=== PATIENT | female | born 1995 | race Caucasian/White ===

== ENCOUNTER 2024-01-04 00:17 | Emergency (ER) | payer SELFPAY ==
[~2024-01-04] VITALS: Ht 167.6 cm; Wt 58.0 kg
[2024-01-04 00:31] VITALS: TEMP 97.9; O2SAT 100
[2024-01-04] MEDS: MAGNESIUM/ALUMINUM HYDROXIDE/SIMETHICONE 30ML UDC PO STA (00:39)
[2024-01-04] MEDS: ONDANSETRON HCL 4MG/2ML INJ IV STA (00:39)
[2024-01-04] MEDS: SODIUM CHLORIDE 0.9% 1,000 ML IV ONE (00:45)
[2024-01-04 01:15] LABS: HEMATOCRIT. 45.5 % (36.0-48.0); HEMOGLOBIN. 15.1 g/dL (12.0-16.0); MEAN CORPUSCULAR HEMOGLOBIN 29.6 pg (28.0-32.0); MEAN CORPUSCULAR HGB CONC 33.3 g/dL (31.0-37.0); MEAN PLATELET VOLUME 9.3 fl (7.4-10.4); PLATELET 202 x1000/uL (130-400); RED BLOOD CELL COUNT 5.11 mill/uL (4.2-5.4); RED CELL DISTRIBUTION WIDTH 12.2 % (11.6-14.6); WHITE BLOOD COUNT 11.8 x1000/uL (4.5-11.0)
[2024-01-04 01:17] LABS: DIFFERENTIAL COMMENT 1
[2024-01-04 01:23] LABS: PROTHROMBIN TIME 11.4 sec (9.6-11.0)
[2024-01-04 01:32] LABS: HCG SCREEN NEGATIVE
[2024-01-04 01:45] LABS: CHLORIDE 107 mEq/L (98-107); POTASSIUM 3.7 mEq/L (3.5-5.1); SODIUM 140 mEq/L (136-145)
[2024-01-04 01:46] LABS: CALCIUM 9.1 mg/dL (8.7-10.4); CARBON DIOXIDE 27 mEq/L (21-32)
[2024-01-04 01:51] LABS: CREATININE 0.9 mg/dL (0.6-1.0); GLUCOSE 94 mg/dL (70-105); UREA NITROGEN BLOOD 15 mg/dL (9-23)
[2024-01-04 01:53] LABS: ALANINE AMINOTRANSFERASE 20 IU/L (10-49); ALBUMIN 4.3 g/dL (3.2-4.8); ASPARTATE AMINOTRANSFERASE 21 IU/L (<34); BILIRUBIN DIRECT 0.2 mg/dL (<=3.0)
[2024-01-04 01:54] LABS: BILIRUBIN TOTAL 0.8 mg/dL (0.1-1.0); PROTEIN TOTAL 7.1 g/dL (6.0-8.3)
[2024-01-04 02:02] LABS: ETHANOL BLOOD < 10 mg/dL (<10)
[2024-01-04] MEDS: ONDANSETRON HCL 4MG/2ML INJ IV NR (02:20)
[2024-01-04 03:08] VITALS: BP 116/86; PULSE 82; RESP 18; O2SAT 100
[2024-01-04] MEDS ORDERED: ONDA4TAB50 MT (03:15)
[2024-01-04] MEDS ORDERED: MAG355OR21 MT (03:15)
[2024-01-04] MEDS ORDERED: ONDANSETRON 4MG ODT PO ONE (04:00)
[2024-01-04 08:18] LABS: PLATELET ESTIMATE NORMAL
== END 2024-01-04 03:32 | disposition home or self-care (01) ==
LOC: ER 00:17
DX: B34.9 Viral infection, unspecified (principal); R11.2 Nausea with vomiting, unspecified
CPT/HCPCS: 80076; 80048; 80320; 84703; 83690; 85025; 85610; 36415; 96361; 96374; 99283; Q0162; J2405; J7030; Z7610; G0480